=== PATIENT | female | born 1950 | race Native Hawaiian/Other Pacific Islander ===

== ENCOUNTER 2018-05-06 12:24 | Emergency (ER) | payer OTHER ==
[~2018-05-06] VITALS: Ht 154.9 cm; Wt 53.5 kg
[2018-05-06 12:31] VITALS: BP 142/74; TEMP 98
[2018-05-06 14:29] LABS: PLATELET COUNT 258 K/uL (152-353)
[2018-05-06 14:38] LABS: POTASSIUM 3.1 mmol/L (3.6-5.2)
== END 2018-05-06 15:25 | disposition home or self-care (01) ==
LOC: EDBD 12:24 → ED 12:24
PROVIDERS: Family Medicine
DX: N39.0 Urinary tract infection, site not specified (principal); E87.6 Hypokalemia
CPT/HCPCS: 80053; 81000; 85027; 96360; 99284